=== PATIENT | male | born 1995 | race Caucasian/White ===

== ENCOUNTER 2018-05-19 18:13 | Emergency (ER) | payer OTHER ==
[2018-05-19 18:20] VITALS: BP 125/61; PULSE 89; TEMP 98.6; BMI 26.6
[2018-05-19] MEDS ORDERED: DIPHTH,PERTUSS(ACELL),TET 0.5 ML DISP.SYRIN IM ONE (18:59)
--- NOTE | 2018-05-19 19:05 | PDOC ---
History of Present Illness - General Chief Complaint: Laceration Stated Complaint: LACERTAION FOREHEAD Time Seen by Provider: 05/19/18 18:40 - History of Present Illness Initial Comments: 22-year-old male without comorbidities presents for evaluation of a laceration above his left eye. He states he slipped and fell this occurred at 2 AM in the morning 17 hours prior to his arrival in the emergency department. He's had no loss of consciousness post injury nausea vomiting or visual changes he was intoxicated at the time of the fall. 05/19/18 19:01 Past History - Past Medical History Allergies/Adverse Reactions: Allergies Allergy/AdvReac Type Severity Reaction Status Date / Time fluticasone [From Flonase] Allergy Severe Itching Verified 05/19/18 18:18 Home Medications: Ambulatory Orders Cephalexin [Keflex] 500 mg PO QID #20 capsule 05/19/18 Lamotrigine [Lamictal -] 25 mg PO DAILY 05/19/18 COPD: No - Immunization History Immunization Up to Date: Yes - Suicide/Smoking/Psychosocial Hx Smoking History: Never smoked Review of Systems - Review of Systems All Other Systems: Reviewed and Negative *Physical Exam - Vital Signs Last Vital Signs Temp Pulse Resp BP Pulse Ox 98.6 F 89 18 125/61 98 05/19/18 18:16 05/19/18 18:16 05/19/18 18:16 05/19/18 18:16 05/19/18 18:16 - Physical Exam Comments: HEAD: NC/There is a 2 cm laceration upside down V shaped at the lateral aspect above the left eyebrow thickness exposing muscle and subcutaneous fat EYES: Conjuntiva clear, PERRL, EOMI Ears: Canals and TM's normal NOSE: No d/c THROAT: Moist mucous membrances, oral pharanx clear, uvula midline NECK: Supple without adenopathy CARDIAC: S1 S2 LUNGS: CTA Full and Equal breath sounds ABDOMEN: Soft NT ND MS: Full ROM in all joints without edema NEUROLOGIC: No gross sensory or motor deficits, NVID Romberg maneuver is negative SKIN: Normal color and temperature no lesions or rashes 05/19/18 19:02 Medical Decision Making - Medical Decision Making The wound was anesthetized with 6 mL of 1% lidocaine without epinephrine. Copiously irrigated and explored to its in a bloodless field without any identification of foreign body. Again irrigated copiously with almost a liter of saline. The edges were loosely approximated with 5 6-0 simple nylon sutures in an interrupted fashion this was tolerated well 05/19/18 19:03 *DC/Admit/Observation/Transfer Diagnosis at time of Disposition: Laceration of face - Discharge Dispostion Disposition: HOME Condition at time of disposition: Stable Decision to Admit order: No - Prescriptions Prescriptions: Cephalexin [Keflex] 500 mg PO QID #20 capsule - Referrals Referrals: Kaylen Yoon PA [Physician Correspondence Coordinator] - - Patient Instructions Printed Discharge Instructions: DI for Laceration Repair Additional Instructions: Return to the emergency room should symptoms worsen or go unresolved. Please follow-up with plastic surgery for suture removal in 5-7 days. Return to the emergency room should there be any increasing redness drainage swelling or pain around the area of the wound. The sutures need to be removed in 5-7 days. I've also given you a course of prophylactic antibiotics and her tetanus was updated today. Keep the wound clean and dry for 48 hours after which you can wash it with soap and water and leave it open to air. For the first 48 hours and cover with a Band-Aid if you need to - Post Discharge Activity
== END 2018-05-19 19:10 | disposition home or self-care (01) ==
LOC: JERFT 18:13
PROC: 3E0234Z Introduction of Serum, Toxoid and Vaccine into Muscle, Percutaneous Approach (ICD-10-PCS; principal; 2018-05-19)
PROC: 0JQ10ZZ Repair Face Subcutaneous Tissue and Fascia, Open Approach (ICD-10-PCS; 2018-05-19)
DX: S01.81XA Laceration without foreign body of other part of head, initial encounter (principal); W01.0XXA Fall on same level from slipping, tripping and stumbling without subsequent striking against object, initial encounter; Y93.89 Activity, other specified; Y92.89 Other specified places as the place of occurrence of the external cause; Y99.8 Other external cause status; F10.929 Alcohol use, unspecified with intoxication, unspecified; Y90.9 Presence of alcohol in blood, level not specified
CPT/HCPCS: 90715; 99281-25